=== PATIENT | male | born 1980 | race Caucasian/White ===

== ENCOUNTER 2021-06-23 20:08 | Emergency (ER) | payer BC ==
[~2021-06-23] VITALS: Ht 177.8 cm; Wt 104.3 kg
[~2021-06-23 20:08] MED LIST: NAPROSYN500 MG PO; NKHM; PENICILLIN VK500 MG PO; ZOFRAN ODT4 MG SL
[2021-06-23 20:51] LABS: BASO % 0.4 % (0.0-1.0); EOS # 0.1 10*3/uL (0.0-0.4); EOS % 1.2 % (1.0-4.0); HEMATOCRIT 44.6 % (42.0-52.0); LYMPH # 0.7 10*3/uL (1.3-4.4); LYMPH % 7.5 % (27.0-41.0); MEAN CELL VOLUME 90.7 fl (80.0-94.0); MEAN CORPUSCULAR HGB 30.7 pg (27.0-31.0); MEAN CORPUSCULAR HGB CONC 33.9 g/dl (33.0-37.0); MEAN PLATELET VOLUME 8.9 fl (9.6-12.3); MONO % 10.7 % (3.0-9.0); NEUT # 7.3 10*3/uL (2.3-7.9); NEUT % 79.9 % (47.0-73.0); PLATELET COUNT AUTOMATED 385 10*3/uL (130-400); RED BLOOD COUNT 4.92 10*6/uL (4.50-5.90); WHITE BLOOD COUNT 9.1 10*3/uL (4.8-10.8)
[2021-06-23 21:11] LABS: ALKALINE PHOSPHATASE 55 U/L (45-117); BUN 18 mg/dl (7-24); CHLORIDE 106 mmol/L (98-107); CREATININE 0.98 mg/dL (0.70-1.30); LIPASE 241 U/L (73-393); POTASSIUM 4.5 mmol/L (3.5-5.1); SGOT/AST 16 IU/L (3-35); SGPT/ALT 27 U/L (12-78); SODIUM 137 mmol/L (136-145); TOTAL PROTEIN 7.2 gm/dL (6.4-8.2)
[2021-06-23] MEDS ORDERED: DICYCLOMINE HYD20 MG PO (21:33)
[2021-06-23] MEDS ORDERED: ZOFRAN4 MG PO (21:33)
== END 2021-06-23 21:38 | disposition home or self-care (01) ==
LOC: ED 20:08
PROVIDERS: Emergency Medicine
DX: K52.9 Noninfective gastroenteritis and colitis, unspecified (principal)

== ENCOUNTER 2023-07-12 01:03 | Emergency (ER) | payer BC ==
[~2023-07-12] VITALS: Wt 106.6 kg
[~2023-07-12 01:03] MED LIST changes: +DICYCLOMINE HYD20 MG PO; +ZOFRAN4 MG PO
[2023-07-12] MEDS ORDERED: Ketorolac Tromethamine 10 MG TAB PO ONE (02:15)
[2023-07-12] MEDS ORDERED: AMOXICILLIN 500 MG CAP PO ONE (02:15)
[2023-07-12] MEDS ORDERED: Amoxicillin/Clavulanate Pota 875 MG TAB PO ONE (02:50)
== END 2023-07-12 02:52 | disposition home or self-care (01) ==
LOC: ED 01:03
DX: K08.89 Other specified disorders of teeth and supporting structures (principal); H92.01 Otalgia, right ear